=== PATIENT | female | born 1990 | race Two or more races ===

== ENCOUNTER 2025-01-13 08:19 | Inpatient (IN) | payer OTHER ==
[2025-01-13 09:45] VITALS: BMI 32.1
[2025-01-13 10:00] LABS: INR 0.92 (0.83-1.09); PROTHROMBIN TIME (PATIENT) 10.1 SEC (9.7-13.0)
[2025-01-13 10:02] LABS: ACTIVATED PTT 27.3 SECONDS (25.2-36.5)
[2025-01-13] MEDS ORDERED: ONDANSETRON 4 MG/2 ML VIAL IVPUSH PRN (10:19)
[2025-01-13] MEDS ORDERED: FENTANYL CITRATE/PF 50 MCG/ML VIAL ONE (10:26)
[2025-01-13] MEDS ORDERED: LIGASURE IMPACT TP ONE (10:42)
[2025-01-13] MEDS ORDERED: PHENYLEPHRINE HCL 10 MG/1 ML SINGLE DOSE VIAL ONE (10:53)
[2025-01-13] MEDS ORDERED: ONDANSETRON 4 MG/2 ML VIAL ONE (11:08)
[2025-01-13] MEDS ORDERED: OXYTOCIN 10 UNITS/ML VIAL ONE ×2 (11:42)
[2025-01-13] MEDS ORDERED: METHYLERGONOVINE MALEATE 0.2 MG/1 ML AMP IM PRN (12:08)
[2025-01-13 12:22] LABS: CORD BASE EXCESS -3.4 mmol/L (0-2); CORD HCO3 22.6 mmHg (20-29); CORD PCO2 43.9 mmHg (30-78); CORD pH 7.329 (7.14-7.44)
[2025-01-13 12:25] LABS: CORD BASE EXCESS -4.0 mmol/L (0-2); CORD HCO3 23.0 mmHg (20-29); CORD PCO2 49.0 mmHg (30-78); CORD pH 7.29 (7.14-7.44)
[2025-01-13] MEDS: OXYTOCIN 20 UNITS in 0.9% NS 20 UNIT/1,000 ML INFUS.BAG IV SCH (13:00)
[2025-01-13] MEDS ORDERED: OXYTOCIN 20 UNITS in 0.9% NS 20 UNIT/1,000 ML INFUS.BAG IV ONE (13:01)
[2025-01-13 15:12] VITALS: RESP 18
[2025-01-13] MEDS: ACETAMINOPHEN 1000 MG/100 ML BAG IVPB PRN (19:54)
[2025-01-13] MEDS: IBUPROFEN (CALDOLOR) 800 MG/200 ML PREMIX BAGS IVPB ONE (19:58)
[2025-01-13] MEDS: SIMETHICONE 80 MG TAB.CHEW (FP) PO PRN (20:03)
[2025-01-14] MEDS: IBUPROFEN 600 MG TABLET (FP) PO PRN (07:45)
[2025-01-14 08:00] LABS: ABSOLUTE IMMATURE GRANULOCYTES 0.03 x10^3/uL (0.0-0.031); BASOPHILS # 0.03 x10^3/uL (0.01-0.08); EOSINOPHIL % 0.8 % (0.7-5.8); EOSINOPHILS # 0.09 x10^3/uL (0.04-0.36); MCHC 33.7 g/dl (32.2-35.5); MEAN CELL VOLUME 86.5 fl (79.4-94.8); MEAN PLT VOLUME 10.7 fl (9.4-12.3); MONOCYTE # 0.63 x10^3/uL (0.24-0.86); MONOCYTE % 5.5 % (4.7-12.5); RDW 13.3 % (12.1-16.8)
[2025-01-14] MEDS: FLU VACC TS2025-26(6MOS UP)/PF 45 MCG/0.5 ML SYRINGE IM ONE (10:11)
[2025-01-14] MEDS: DIPHTH,PERTUSS(ACELL),TET 0.5 ML DISP.SYRIN IM ONE (10:13)
[2025-01-14] MEDS: ACETAMINOPHEN 325 MG TABLET (FP) PO PRN (13:28)
[2025-01-15] MEDS: BISACODYL 10 MG SUPP.RECT RC PRN (17:43)
[2025-01-15 22:21] VITALS: TEMP 98.2
[2025-01-16 07:10] LABS: ABSOLUTE IMMATURE GRANULOCYTES 0.02 x10^3/uL (0.0-0.031); BASOPHILS # 0.03 x10^3/uL (0.01-0.08); EOSINOPHIL % 3.5 % (0.7-5.8); EOSINOPHILS # 0.30 x10^3/uL (0.04-0.36); MCHC 33.1 g/dl (32.2-35.5); MEAN CELL VOLUME 86.9 fl (79.4-94.8); MEAN PLT VOLUME 10.0 fl (9.4-12.3); MONOCYTE # 0.64 x10^3/uL (0.24-0.86); MONOCYTE % 7.5 % (4.7-12.5); RDW 13.4 % (12.1-16.8)
[2025-01-16 11:19] VITALS: BP 111/78; PULSE 70
== END 2025-01-16 14:05 | disposition home or self-care (01) | DRG 540 ==
LOC: JLDR 08:19 → J3W 14:45
PROVIDERS: ADMIT Obstetrics & Gynecology Obstetrics; ATTEND Obstetrics & Gynecology Obstetrics
PROC: 10D00Z1 Extraction of Products of Conception, Low, Open Approach (ICD-10-PCS; principal; 2025-01-13)
PROC: 0UT70ZZ Resection of Bilateral Fallopian Tubes, Open Approach (ICD-10-PCS; 2025-01-13)
DX: O34.219 Maternal care for unspecified type scar from previous cesarean delivery (principal); Z3A.39 39 weeks gestation of pregnancy; Z37.0 Single live birth; Z30.2 Encounter for sterilization
CPT/HCPCS: 36415; 36600; 59409; 80053; 82803; 82962; 85025; 85610; 85730; 86780; 86850; 86900; 86901; 88305-TC; 88307-TC; 90656; 90715